=== PATIENT | male | born 2000 | race Caucasian/White ===

== ENCOUNTER 2023-10-13 08:22 | Emergency (ER) | payer BC, SELFPAY ==
[2023-10-13 08:31] VITALS: BP 156/98; PULSE 83; RESP 16; TEMP 36.6; O2SAT 100; BMI 22.1
--- NOTE | 2023-10-13 09:17 | W.ED.WOUNDLC ---
HPI - Wound/Laceration General: Chief Complaint: Wound/Laceration Stated Complaint: Right Hand Lac Time Seen by Provider: 10/13/23 08:28 Source: patient Mode of arrival: ambulatory History of Present Illness: 23-year-old male who was hunting this morning he shot a turkey he grabbed it and was cut on his right thumb and index finger. At the MP joint on the palmar surface on his right hand of the index finger and just distal to the MP joint on the thumb. No other injuries his tetanus is up-to-date Onset (ago): minute(s) Extremity Location: Right: hand Place: outdoors Patient tetanus UTD: Yes Context: accidental Associated symptoms: Reports pain Treatments prior to arrival: bandage Physical Exam Narrative: EXAM NARRATIVE: Full-thickness laceration on the volar surface at the MP joint on the right hand and on the right thumb proximal phalanx volar surface. Both are full-thickness open and gaping with exposure of underlying tissue. Tendon function intact sensation normal normal capillary refill. No loss of strength with flexion in either index or thumb. Procedures Laceration Laceration 1: Site: hand Side (If applicable): right (Base of right index finger) Size (cm): 2 Description: flap and irregular Depth: simple, single layer Local Anesthetic: lidocaine 1% Amount of anesthesia used (mL): 2 Pre-repair: wound explored, irrigated extensively and deep structures intact Skin layer closed with: other (Prolene) Size (cm): 4-0 Number of sutures: 3 Technique: simple, interrupted Size: 4-0 Laceration 2: Site: hand Side (If applicable): right Size (cm): 1.5 Description: linear Depth: simple, single layer Local Anesthetic: lidocaine 1% Amount of anesthesia used (mL): 2 Pre-repair: wound explored, irrigated extensively and deep structures intact Skin layer closed with: other (Prolene) Size (cm): 4-0 Number of sutures: 2 Technique: simple, interrupted Course Vital Signs: Vital signs: Vital Signs Temperature 97.8 F 10/13/23 11:31 Pulse Rate 75 10/13/23 11:31 Respiratory Rate 16 10/13/23 11:31 Blood Pressure 142/96 10/13/23 11:31 Pulse Oximetry 100 10/13/23 11:31 Oxygen Delivery Me thod Room Air 10/13/23 10:38 MDM - Wound/Laceration Medical Decision Making On exam patient has full range of motion neurovascularly intact. No evidence of tendon damage she can hold flexion against resistance. Wounds closed without difficulty he is given a gram of Ancef wounds were very loosely closed due to an animal attack and did not want to close thoroughly discussion of infections. Return if there is any drainage redness or erythema. Apply topical antibiotic ointment to wounds twice a day remove sutures in 7 to 10 days No radiology studies performed this visit Discharge Plan Discharge Patient Disposition: Home Clinical Impression: Laceration Condition: Stable Prescriptions: New Augmentin 500-125 mg tablet 1 tab PO TID Qty: 21 0RF mupirocin 2 % ointment 1 applic topical TID Qty: 15 0RF Discharge Orders: Discharge ED (Routine); Ordered 10/13/23 Ordered By: Campos Joseph Discharge Diet: Usual diet Discharge Activity: Increase activity as tolerated Patient Instructions: Finger Laceration (ED), Opioid Safety, Pain Management Activity Restrictions/Additional Instructions: Thank you for choosing [facility] for your healthcare needs today. Please realize this is an emergency room and that we are providing you with a medical screening exam and this may not be complete and all inclusive of all the testing and or work up that you may need to determine your ailment or severity of your illness. It is very important that you follow up as instructed or that you return to the Emergency Department should you have concerns or if your condition changes or worsens in any way. Sutures removed in 10 days Coding Level of Care Code ED Transportation Officer for Siddharth Hdez
[2023-10-13] MEDS: ceFAZolin 1,000 MG in water for injection-sterile 2.5 ML 2.5 MG IM (10:11)
[2023-10-13 10:38] VITALS: PULSE 80; RESP 16; O2SAT 100
[2023-10-13] MEDS: lidocaine 1% INJ 10 mL (per mL) INJECTION (10:44)
[2023-10-13] MEDS: neomycin-poly-bacitracin oint 0.9 gm Pkt 1 APPLIC TOPICAL (11:07)
[2023-10-13 11:31] VITALS: BP 142/96; PULSE 75; RESP 16; TEMP 36.6; O2SAT 100
== END 2023-10-13 11:32 | disposition home or self-care (01) ==
PROVIDERS: Emergency Provider Family Medicine
DX: S61.411A Laceration without foreign body of right hand, initial encounter (principal); S61.011A Laceration without foreign body of right thumb without damage to nail, initial encounter; W61.42XA Struck by turkey, initial encounter
CPT/HCPCS: 12002; 96372; 99284; J0690